=== PATIENT | female | born 1935 | race Caucasian/White ===

== ENCOUNTER 2017-03-31 08:56 | Day surgery (SDC) | payer MEDICARE, OTHER ==
--- NOTE | ~2017-03-31 | EGD ---
EGD REPORT [facility] [address] [address] NAME: LEI EPSTEIN : [birth year] STATUS : REG [facility]#: [id number] AGE: 81 ADM/REG DATE : 03/31/17 MR#: [id number] REPORT SERV DATE: 03/31/17 DICTATED BY: ILA PRYOR DATE: 03/31/17 REPORT STATUS : Draft [facility]ANSCRIBED BY: [facility] DATE: 03/31/17 Endoscopy Center Patient Name: Lei Epstein Date of : 1935 Attending MD: ILA PRYOR MD Procedure Date No Time: 03/31/2017 Procedure: Colonoscopy Indications: Iron deficiency anemia Medicines: as per anesthesia Complications: No immediate complications. Procedure: After I obtained informed consent, the scope was passed under direct vision. Throughout the procedure, the patient's blood pressure, pulse, and oxygen saturations were monitored continuously. The PCF H190L [id number] was introduced through the anus and advanced to the cecum, identified by appendiceal orifice and ileocecal valve. The colonoscopy was performed without difficulty. The patient tolerated the procedure. The quality of the bowel preparation was fair. Findings: The perianal and digital rectal examinations were normal. A sessile polyp was found in the ascending colon. The polyp was 4 mm in size. The polyp was removed with a cold biopsy forceps. Resection and retrieval were complete. A single large angiodysplastic lesion without bleeding was found in the ascending colon. A few small and large-mouthed diverticula were found in the sigmoid colon. Internal hemorrhoids were found during endoscopy and were mild. Impression: - One 4 mm polyp in the ascending colon. Resected and retrieved. - A single non-bleeding colonic angiodysplastic lesion. - Diverticulosis in the sigmoid colon. - Internal hemorrhoids. Recommendation: - Await pathology results. Procedure Code(s): --- Professional --- 94434, Colonoscopy, flexible, proximal to splenic flexure; with biopsy, single or multiple Diagnosis Code(s): --- Professional --- D12.2, Benign neoplasm of ascending colon EGD REPORT [address] [address] NAME: LEI EPSTEIN : 39 [place]US : [place] [facility] [place] PAT#: [id number] AGE: 81 ADM/REG DATE : 03/31/17 MR#: [id number] REPORT SERV DATE: 03/31/17 DICTATED BY: ILA PRYOR DATE: 03/31/17 REPORT STATUS : Draft TRANSCRIBED BY: [employer] DATE: 03/31/17 K55.20, Angiodysplasia of colon without hemorrhage K64.8, Other hemorrhoids K57.30, Diverticulosis of large intestine without perforation or abscess without bleeding D50.9, Iron deficiency anemia, unspecified CPT copyright 2013 [employer]. All rights reserved. The codes documented in this report are preliminary and upon cane flume feeding machine operator review may be revised to meet current compliance requirements. ILA PRYOR MD 03/31/2017 11:04 AM This report has been signed electronically. Number of Addenda: 0 Note Initiated On: 03/31/2017 10:03 AM Scope Withdrawal Time 0 hours 12 minutes 30 seconds
--- NOTE | ~2017-03-31 | EGD ---
EGD REPORT [facility] [address] [address] NAME: LEI ROY : 39 STATUS : REG [facility]#: [id number] AGE: 81 ADM/REG DATE : 03/31/17 MR#: [id number] REPORT SERV DATE: 03/31/17 DICTATED BY: DATE: REPORT STATUS : Draft TRANSCRIBED BY: [employer] DATE: 03/31/17 Endoscopy Center Patient Name: Lei Roy Date of : 1935 Attending MD: ILA PRYOR MD Procedure Date No Time: 03/31/2017 Procedure: Small bowel enteroscopy Indications: Iron deficiency anemia, phx sb ca Referring MD: CELSO HAMILTON Medicines: as per anesthesia Complications: No immediate complications. Procedure: After obtaining informed consent, the endoscope was passed under direct vision. Throughout the procedure, the patient's blood pressure, pulse, and oxygen saturations were monitored continuously. The PCF H190L [id number] was introduced through the mouth and advanced to the proximal jejunum. The small bowel enteroscopy was accomplished without difficulty. The patient tolerated the procedure. Findings: The examined esophagus was normal. Multiple sessile polyps were found in the gastric body. Biopsies were taken with a cold forceps for histology. There was no evidence of significant pathology in the entire examined duodenum. anastomosis nl Exam of the jejunum was otherwise normal. Impression: - Normal esophagus. - Multiple gastric polyps. Biopsied. - Normal examined duodenum. Recommendation: - Await pathology results. Procedure Code(s): --- Professional --- 44916, Small intestinal endoscopy, enteroscopy beyond second portion of duodenum, not including ileum; with biopsy, single or multiple Diagnosis Code(s): --- Professional --- K31.7, Polyp of stomach and duodenum D50.9, Iron deficiency anemia, unspecified EGD REPORT [facility] [address] [address] NAME: LEI ROY : 39 STATUS : [place] [facility] [place] [id number] AGE: 81 ADM/REG DATE : 03/31/17 MR#: [id number] REPORT SERV DATE: 03/31/17 DICTATED BY: DATE: REPORT STATUS : Draft TRANSCRIBED BY: [employer] DATE: 03/31/17 CPT copyright 2013 [employer]. All rights reserved. The codes documented in this report are preliminary and upon clinical coder review may be revised to meet current compliance requirements. ILA PRYOR MD 03/31/2017 10:35 AM This report has been signed electronically. Number of Addenda: 0 Note Initiated On: 03/31/2017 10:04 AM Scope Withdrawal Time 0 hours 0 minutes 0 seconds [address] [address]
[~2017-03-31 08:56] MED LIST: AMARYL2 PO; AMARYL4 PO; BIST PO; CALTRA600D PO; CINNAMON PO; CIP7 PO; COR40 PO; COREG12 PO; COZAAR100 MG PO; CRESTOR10 PO; DSS PO; FERROUS SULF325 M1 PO; FLUCON150 PO; GLUCPH PO; HCTZ25B PO; HYDROCHLOROT25 MG PO; INSNOV7030 SC; JANUMET1 TA1 PO; LIPITOR40 PO; LYRICA100 MG PO; LYRICA50 PO; MOBIC15 MG PO; MOTRIN IB200 MG PO; MULTIPLE VIT PO; NADOLOL PO; NEXIUM40 PO; NORCO1 TA1 PO; NORV5 PO; NOVOPENMIX SC; NYS500UDL PO; PRIN5 PO; PROBIOTIC PO; PROTONIX PO; REG5 PO; STOOL SOFTEN100 MG PO; ULTRAM50 PO; VESICARE5 PO; VITAMIN D31000 UNIT PO; VITC500 PO; ZOCOR40 PO; ZOFRAN4 PO
== END 2017-03-31 23:59 | disposition home or self-care (01) ==
LOC: DMU 08:56
PROVIDERS: Internal Medicine Gastroenterology
PROC: 0DB98ZX Excision of Duodenum, Via Natural or Artificial Opening Endoscopic, Diagnostic (ICD-10-PCS; principal; 2017-03-31 10:30)
PROC: 0DBK8ZZ Excision of Ascending Colon, Via Natural or Artificial Opening Endoscopic (ICD-10-PCS; 2017-03-31 10:30)
DX: D12.2 Benign neoplasm of ascending colon (principal); K31.7 Polyp of stomach and duodenum; D50.9 Iron deficiency anemia, unspecified; K64.8 Other hemorrhoids; K57.30 Diverticulosis of large intestine without perforation or abscess without bleeding; I10 Essential (primary) hypertension; K21.9 Gastro-esophageal reflux disease without esophagitis; E11.40 Type 2 diabetes mellitus with diabetic neuropathy, unspecified; E78.00 Pure hypercholesterolemia, unspecified; F41.9 Anxiety disorder, unspecified; F41.0 Panic disorder [episodic paroxysmal anxiety]; M19.90 Unspecified osteoarthritis, unspecified site; Z96.1 Presence of intraocular lens; Z98.41 Cataract extraction status, right eye; Z98.42 Cataract extraction status, left eye; Z89.431 Acquired absence of right foot; Z90.49 Acquired absence of other specified parts of digestive tract; Z90.710 Acquired absence of both cervix and uterus; Z87.891 Personal history of nicotine dependence; Z85.068 Personal history of other malignant neoplasm of small intestine; Z79.4 Long term (current) use of insulin; Z79.84 Long term (current) use of oral hypoglycemic drugs; Z79.899 Other long term (current) drug therapy; Z98.890 Other specified postprocedural states
CPT/HCPCS: 82962; 88305

== ENCOUNTER 2017-04-25 23:32 | Emergency (ER) | payer MEDICARE, OTHER ==
[2017-04-25 23:15] LABS: BASOPHILS 0.4 %; BASOPHILS ABSOLUTE 0.03 10/3/uL (0.0-0.16); EOSINOPHILS 4.1 %; EOSINOPHILS ABSOLUTE 0.32 10/3/uL (0.0-0.53); HEMATOCRIT 34.2 % (36.0-48.0); IMMATURE GRANULOCYTES 0.1 %; IMMATURE GRANULOCYTES ABSOLUTE 0.01 10/3/uL (0.0-0.11); LYMPHOCYTES 28.7 %; LYMPHOCYTES ABSOLUTE 2.23 10/3/uL (0.67-4.30); MANUAL DIFF NO %; MEAN CORPUS HGB CONC 32.2 g/dL (32.0-36.0); MEAN CORPUSCULAR HEMOGLOB 25.8 pg (26.0-34.0); MEAN CORPUSCULAR VOLUME 80.3 fL (80-100); MEAN PLATELET VOLUME 11.4 fL (9.2-13.0); MONOCYTES 8.1 %; MONOCYTES ABSOLUTE 0.63 10/3/uL (0.21-1.20); NEUTROPHILS 58.6 %; NEUTROPHILS ABSOLUTE 4.56 10/3/uL (2.02-8.40); PLATELET COUNT 211 10/3/uL (150-400); RBC DISTRIBUTION WIDTH 14.4 % (12.0-16.0); RED CELL COUNT 4.26 10/6/uL (4.0-5.6); WHITE BLOOD CELLS 7.8 10/3/uL (4.5-10.5)
[2017-04-25 23:34] LABS: ALBUMIN 3.6 G/DL (3.5-5.0); ALKALINE PHOSPHATASE 109 U/L (45-117); BUN (BLOOD UREA NITROGEN) 17 MG/DL (6-23); CALCIUM, SERUM 8.9 MG/DL (8.5-10.4); CHLORIDE, SERUM 107 MMOL/L (96-112); CO2 (CARBON DIOXIDE) 29 MMOL/L (24-34); GFR AFRICAN AMERICAN 55 ML/MIN (>=60); GFR NON AFRICAN AMERICAN 48 ML/MIN (>=60); GLOBULIN 3.5 G/DL (2.5-4.1); GLUCOSE, SERUM 131 MG/DL (60-99); POTASSIUM, SERUM 3.8 MMOL/L (3.5-5.3); SGOT(AST) 13 U/L (5-40); SGPT(ALT) 18 U/L (5-65); SODIUM, SERUM 143 MMOL/L (135-148); TOTAL BILIRUBIN 0.3 MG/DL (0-1.2); TOTAL PROTEIN 7.1 G/DL (6.0-8.5)
== END 2017-04-26 00:18 | disposition home or self-care (01) ==
LOC: ER 23:32
PROVIDERS: Nurse Practitioner
DX: L03.115 Cellulitis of right lower limb (principal); I10 Essential (primary) hypertension; E11.9 Type 2 diabetes mellitus without complications; Z87.891 Personal history of nicotine dependence; Z79.891 Long term (current) use of opiate analgesic; Z79.84 Long term (current) use of oral hypoglycemic drugs; Z79.4 Long term (current) use of insulin; Z79.899 Other long term (current) drug therapy
CPT/HCPCS: 80053; 85025; 87040; 93971; 96365; 99284; J3370